=== PATIENT | male | born 2000 | race Caucasian/White ===

== ENCOUNTER 2022-06-07 18:12 | Emergency (ER) | payer SELFPAY ==
[2022-06-09 21:08] LABS: CHLAMYDIA TRACHOMATIS, NAA Negative (Negative); NEISSERIA GONORRHOEAE, NAA Negative (Negative)
== END 2022-06-07 22:19 | disposition home or self-care (01) ==
LOC: ER1 18:12
PROVIDERS: Physician Assistant Medical
DX: A63.0 Anogenital (venereal) warts (principal)
CPT/HCPCS: 81001; 86696; 99283